=== PATIENT | male | born 1975 | race Caucasian/White ===

== ENCOUNTER 2020-01-01 07:08 | Day surgery (SDC) | payer BC ==
[2019-12-31 10:42] VITALS: BMI 45.6
[2020-01-01] MEDS ORDERED: AFRIN NASAL MIST 15 ML BOT ONE ×2 (08:31→08:51)
[2020-01-01] MEDS ORDERED: Lidocaine 1% w/Epinephrine 1:100K 20 ML VIAL ONE (08:51)
[2020-01-01] MEDS ORDERED: Ferric Subsulfate (ASTRINGYN) 8 GM VIAL ONE (08:51)
[2020-01-01] MEDS ORDERED: Bacitracin Zinc Ointment 30 gm TUBE ONE (08:51)
[2020-01-01] MEDS ORDERED: Fentanyl 100 MCG/2 ML VIAL ONE ×2 (08:58→11:04)
[2020-01-01] MEDS ORDERED: Midazolam HCl 2 mg/2 ml Vial ONE (08:58)
[2020-01-01] MEDS ORDERED: PHENYLEPHRINE-NS 100 MCG/ML 10 ML SYRINGE ONE (09:20)
[2020-01-01] MEDS ORDERED: PROPOFOL 200 MG/20 ML VIAL ONE (09:20)
[2020-01-01] MEDS ORDERED: Succinylcholine Chloride 20 MG/ML 10 ml SYRINGE FS ONE (09:20)
[2020-01-01] MEDS ORDERED: Lidocaine 1% PF 5 ML VIAL ONE (09:20)
[2020-01-01] MEDS ORDERED: Dexamethasone 20 MG/5 ML VIAL ONE (09:20)
[2020-01-01] MEDS ORDERED: Ondansetron PF 4 MG/2 ML Vial ONE (09:20)
[2020-01-01] MEDS ORDERED: hydrALAZINE 20 MG/ML VIAL ONE (11:11)
[2020-01-01] MEDS ORDERED: Hydrocodone-Acetamin 15 ML UDCUP ONE (12:11)
--- NOTE | 2020-01-01 13:51 | OP ---
DATE OF PROCEDURE: 01/01/2020 PREOPERATIVE DIAGNOSES: 1. Hypertrophic inferior turbinates. 2. Hypertrophic tonsils. 3. Profound septal deformity. POSTOPERATIVE DIAGNOSES: 1. Hypertrophic inferior turbinates. 2. Hypertrophic tonsils. 3. Profound septal deformity. PROCEDURES PERFORMED: 1. Septoplasty. 2. Bilateral nasal endoscopy with submucosal resection of inferior turbinates. 3. Tonsillectomy over 12. DESCRIPTION OF PROCEDURE: SEPTOPLASTY: After local anesthesia was infiltrated into the submucoperichondrial plane, a standard Main incision was made with a #15 blade down to the level of the septal cartilage. The caudal elevator was used to elevate the mucoperichondrium from the underlying cartilage. We then proceeded beyond the bony cartilaginous junction and elevated the bony periosteum as well. Great attention was paid to the spur to prevent rent formation in the septal flap. A transcartilaginous incision was then made, while preserving an adequate dorsal and caudal cartilaginous strut for tip support. The deformed cartilage was removed and disarticulated from the bony cartilaginous junction and maxillary crest. This was placed in saline and would later be crushed and returned to the mucoperichondrial envelope. We then elevated the contralateral periosteum from the bony cartilaginous region and removed the deformed portions of the bone and bony spurs. The cartilage was then crushed and placed back into the mucoperichondrial envelope and the mucosa was re-approximated with a quilting stitch composed of rapidly absorbent gut suture. The Dailey incision was also closed with interrupted gut suture. At the completion of the case, Medina splints were placed and suture secured to the caudal septum. BILATERAL NASAL ENDOSCOPY WITH SUBMUCOSAL RESECTION OF INFERIOR TURBINATES: After consent was obtained, the patient was identified, brought to the operating room, and placed on the operating room table in the supine position. Consent was obtained, notifying the patient of the possibility of additional infections, bleeding, brain injury, and eye/orbital injury. The patient was placed on the operating room table, and general endotracheal anesthesia and intravenous access was obtained. The patient was then positioned, prepped and draped for endoscopic sinus surgery. Nasal preparation included trimming nasal vestibular hairs and spraying in topical Afrin. We then placed Afrin topical solution on nasal pledgets and strategically located them intranasally. The perinasal mucosa was injected with 1% lidocaine with 1:100,000 epinephrine in the submucoperichondrial plane of the septum, lateral nasal wall, and anterior to the uncinate. The patient was then prepped and draped in a sterile fashion and positioned for endoscopic sinus surgery. With the 0-degree endoscope, the patient underwent systematic nasal endoscopy. There were no suspicious internasal masses or lesions identified. We then focused our attention to the osteomeatal complex region under the middle turbinate. The inferior turbinates were visualized with a 0 degree endoscope and outfractured with a Mitch elevator. The inferior medial aspect was cauterized with the electrocautery. Hemostasis was obtained . After adequate airway was established, we turned our attention to the contralateral side and used a similar procedure. Again, a [place] elevator was used to outfracture inferior turbinates under endoscopic visualization. With a suction cautery, the free inferior medial aspect was cauterized under direct visualization along the length of the inferior turbinate. At this point, we then turned our attention to the contralateral side and proceeded with endoscopic sinus surgery. At the completion of the case, Rice keel splints were placed in the ethmoid cavities after the ethmoidectomy. There were no complications. The patient tolerated the procedure well and was discharged to the recovery room in stable condition prior to return to the preoperative day stay with ultimate discharge home. Prescriptions for pain medication and antibiotics were provided. The patient received intramuscular Depo-Medrol during the case. TONSILLECTOMY OVER 12: After consent was obtained, the patient was identified, brought to the operating room, and placed on the operating table in the supine position. General endotracheal anesthesia and intravenous access was obtained and we proceeded with positioning the patient for oropharyngeal surgery. Oropharyngeal exposure was obtained with a Jareth-Gilbert mouth gag after a head drape was placed and secured with a towel clip. The Jareth-Gilbert mouth gag was then suspended from the Leonard tray and palatal elevation was achieved with a red rubber catheter. The right tonsil was addressed first. We used a curved Allis to grasp the tonsil and retract it medially as an anterior pillar incision was made with a #12 blade. The retrotonsillar fascial plane was then established and blunt dissection was performed with the suction cautery. Blood vessels were anticipated, identified, and cauterized as they were encountered. Ultimately, dissection was carried to the posterior tonsillar pillar mucosa which was incised hemostatically, as well as the base of tongue connection. The tonsil was then passed off as a specimen and bleeding points within the tonsillar bed were cauterized under direct visualization. We subsequently turned our attention to the contralateral side, where using a similar technique, a near identical procedure was performed. Again, the tonsil was grasped and retracted medially with a curved Allis as an anterior pillar incision was made with a #12 blade. The retrotonsillar fascial plane was established and while the anterior pillar was retracted medially, the hemostatic blunt dissection of the tonsil with a suction cautery was performed with blood vessels anticipated, identified, and cauterized as they were encountered. Again, dissection continued to the base of tongue and posterior tonsillar pillar mucosa which was incised in a hemostatic fashion. The tonsillar beds were then carefully inspected and bleeding points were identified and cauterized with a suction cautery. After this portion of the procedure, hemostasis was completely obtained. The patient's oral cavity was copiously irrigated with iced saline and subsequently suctioned. We then used the red rubber catheter to suction the gastric contents and the patient was subsequently aroused, awakened, and extubated without difficulty and transported to the recovery room in stable condition. There were no complications. Job ID: [id number]
== END 2020-01-01 13:30 | disposition home or self-care (01) ==
LOC: SDC 07:08
PROVIDERS: ATTEND Specialist
PROC: 09SM0ZZ Reposition Nasal Septum, Open Approach (ICD-10-PCS; principal; 2020-01-01)
PROC: 0CTPXZZ Resection of Tonsils, External Approach (ICD-10-PCS; principal; 2020-01-01)
PROC: 09TL8ZZ Resection of Nasal Turbinate, Via Natural or Artificial Opening Endoscopic (ICD-10-PCS; principal; 2020-01-01)
DX: J34.3 Hypertrophy of nasal turbinates (principal); J34.2 Deviated nasal septum; J35.01 Chronic tonsillitis; J35.8 Other chronic diseases of tonsils and adenoids; K13.79 Other lesions of oral mucosa; K21.9 Gastro-esophageal reflux disease without esophagitis; I10 Essential (primary) hypertension; J45.30 Mild persistent asthma, uncomplicated; G89.29 Other chronic pain; M54.5 Low back pain; M19.90 Unspecified osteoarthritis, unspecified site; F17.210 Nicotine dependence, cigarettes, uncomplicated; Z79.899 Other long term (current) drug therapy
CPT/HCPCS: 88304; J0360; J1100; J2250; J2405; J2704; J3010